=== PATIENT | male | born 1960 | race Caucasian/White ===

== ENCOUNTER 2017-05-11 13:48 | Emergency (ER) | payer BC ==
--- NOTE | ~2017-05-11 | CR229 ---
[facility] A Service of [facility] RADIOLOGY TEXT RESULTS PATIENT: ARPAN BERGER LOCATION: CFTX : [id number] UNIT #: [id number] AGE: [address]: Bonnie Cody APRN SEX: M ORDER DR: [id number] [facility] [address] [facility]. [place], [place] [address] [id number] MR#: [id number] #: [id number] NAME: ARPAN BERGER : 1960 SEX: M STUDY DATE/TIME: 05/11/2017 14:48 UNIT: [facility] ROOM: STUDY DESCRIPTION: CR Shoulder Min 2 View Lt Attending Physician: Bonnie Cody A.P.R.N. Ordering Physician: Ed Jey Gillespie M.D. Primary Care Physician: Alexandra Burnett M.D. MEDICAL IMAGING REPORT This report is preliminary unless electronic signature is present EXAM Left shoulder, 3 views. HISTORY Left shoulder pain fell in shower last night. Three views of the left shoulder demonstrates no fracture or dislocation. Minimal AC joint arthropathy. Soft tissues and visualized left thorax appear normal. IMPRESSION Minimal AC joint arthropathy. No acute findings. Dictated by... Della Harp M.D. THIS IS AN ELECTRONICALLY VERIFIED REPORT Della Harp M.D. at 05/11/2017 9:08 PM Kari TD: 05/11/2017 16:57 JOB #: [id number] MEDICAL IMAGING REPORT Page 1 of 1 COPY
[~2017-05-11 13:48] MED LIST: ALBUTEROL 0.5ML INH; ANAPROX DS550 M1 PO; CONCERTA PO; KEFLEX500 MG PO; PERCOCET 5-3251 TAB PO
== END 2017-05-11 15:45 | disposition home or self-care (01) ==
LOC: CED 13:48 → CFTX 13:48
DX: S40.012A Contusion of left shoulder, initial encounter (principal); F17.210 Nicotine dependence, cigarettes, uncomplicated; W01.0XXA Fall on same level from slipping, tripping and stumbling without subsequent striking against object, initial encounter; Y92.009 Unspecified place in unspecified non-institutional (private) residence as the place of occurrence of the external cause; F90.9 Attention-deficit hyperactivity disorder, unspecified type; J45.909 Unspecified asthma, uncomplicated
CPT/HCPCS: 73030; 99283